=== PATIENT | male | born 1950 | race Two or more races ===

== ENCOUNTER 2016-11-24 03:14 | Emergency (ER) | payer OTHER ==
[~2016-11-24] VITALS: Ht 170.2 cm; Wt 151.0 kg
[~2016-11-24 03:14] MED LIST: LISIPOW; METOPROLOL
[2016-11-24] MEDS ORDERED: NEOMYCIN-BACITRACIN-POLYM 15GM TOP OINT TOP ONE (03:23)
[2016-11-24] MEDS ORDERED: NEOMYCIN-BACITRACIN-POLYM UNITDOSE PKG TOP OINT TOP ONE (03:30)
[2016-11-24] MEDS ORDERED: cloNIDine HCL 0.1 MG TAB PO ONE (03:30)
[2016-11-24] MEDS ORDERED: OXYMETAZOLINE HCL 0.05 % NASAL SPRAY 15ML ONE (03:34)
[2016-11-24] MEDS ORDERED: cefTRIAXone 1GM/50ML D5W 50 ML IV ONE (08:00)
[2016-11-24] MEDS ORDERED: SODIUM CHLORIDE 0.9% 1,000 ML IV ONE (08:00)
[2016-11-24 08:13] LABS: Basophils # (auto) 0 uL; Basophils % (auto) 0.3 % (0.0-2.0); CONDITION Y; Eosinophils # (auto) 0.3 uL; Eosinophils % (auto) 3.9 % (0.0-7.0); Hematocrit 36.7 % (41.0-53.0); Hemoglobin 12.6 g/dL (13.5-17.5); Lymphocytes # (auto) 1.9 uL; Lymphocytes % (auto) 28.7 % (10.0-50.0); Mean Corpuscular Hemoglobin 29.7 pg (28.0-32.0); Mean Corpuscular Hgb Conc. 34.3 g/dL (32.0-36.0); Mean Corpuscular Volume 86.5 fL (80.0-100.0); Mean Platelet Volume 7.9 fL (7.4-10.4); Monocytes # (auto) 0.4 uL; Monocytes % (auto) 6.6 % (0.0-12.0); Neutrophils % (auto) 60.5 % (37.0-80.0); Platelet Count (auto) 254 10^3/uL (140-450); Red Cell Distribution Width 13.9 % (11.6-16.0); White Blood Cell 6.5 10^3/uL (4.4-10.8)
[2016-11-24 08:24] LABS: Albumin 3.5 g/dL (3.4-5.0); BUN/Creatinine Ratio 26.1; Bilirubin, Total 0.3 mg/dL (0.2-1.0); Calcium 8.5 mg/dL (8.5-10.1); Potassium 3.6 mmol/L (3.5-5.1); Total Protein 6.8 g/dL (6.4-8.2)
[2016-11-24 08:25] LABS: INR 0.95 (0.9-1.15); Partial Thromboplastin Time 28.1 sec (22.64-33.71); Prothrombin Time 10.4 sec (9.37-12.3)
[2016-11-24 10:16] VITALS: BP 128/71
== END 2016-11-24 11:15 | disposition home or self-care (01) ==
LOC: ER 03:14
DX: R04.0 Epistaxis (principal); J01.40 Acute pansinusitis, unspecified; E03.9 Hypothyroidism, unspecified; I10 Essential (primary) hypertension; Z88.0 Allergy status to penicillin
CPT/HCPCS: 36415; 70450; 80053; 83735; 84443; 85025; 85610; 85730; 94761; 96365; 99285; J0696

== ENCOUNTER 2021-06-28 01:54 | Emergency (ER) | payer MEDICARE, OTHER ==
[~2021-06-28] VITALS: Ht 170.2 cm; Wt 105.3 kg
[2021-06-28 07:51] LABS: Basophils # (auto) 0.1 10 ^3/uL (0-0.2); Basophils % (auto) 1.1 % (0.0-2.0); Eosinophils # (auto) 0.2 10 ^3/uL (0-0.8); Eosinophils % (auto) 4.3 % (0.0-7.0); Hemoglobin 13.7 g/dL (13.5-17.5); Lymphocytes # (auto) 1.7 10 ^3/uL (0.4-5.4); Lymphocytes % (auto) 32.3 % (10.0-50.0); Mean Corpuscular Hemoglobin 28.7 pg (28.0-32.0); Mean Corpuscular Hgb Conc. 34.2 g/dL (32.0-36.0); Mean Corpuscular Volume 83.7 fL (80.0-100.0); Monocytes # (auto) 0.4 10 ^3/uL (0-1.3); Neutrophils # (auto) 2.8 10 ^3/uL (1.6-8.6); Neutrophils % (auto) 55.3 % (37.0-80.0); Nucleated Red Blood Cells % 0.1 %; Red Blood Cells 4.78 10^6/uL (4.5-5.90); Red Cell Distribution Width 15.8 % (11.8-14.3); White Blood Cell 5.1 10^3/uL (4.4-10.8)
[2021-06-28 08:00] LABS: INR 1.12 (0.9-1.15); Partial Thromboplastin Time 36.2 sec (23.6-33.0)
[2021-06-28 08:05] LABS: Albumin 3.4 g/dL (3.4-5.0); Calcium 8.6 mg/dL (8.5-10.1); Potassium 3.7 mmol/L (3.5-5.1)
[2021-06-28 08:07] LABS: BUN/Creatinine Ratio 22.2
[2021-06-28 08:11] LABS: Bilirubin, Total 0.4 mg/dL (0.2-1.0); Total Protein 6.7 g/dL (6.4-8.2)
[2021-06-28 08:29] VITALS: BP 145/70
== END 2021-06-28 09:20 | disposition home or self-care (01) ==
LOC: ER 01:58
DX: R04.0 Epistaxis (principal); I48.91 Unspecified atrial fibrillation; E11.9 Type 2 diabetes mellitus without complications; I10 Essential (primary) hypertension; Z88.0 Allergy status to penicillin
CPT/HCPCS: 36415; 80053; 83880; 84484; 85025; 85610; 85730

== ENCOUNTER 2022-11-26 19:35 | Emergency (ER) | payer OTHER ==
[~2022-11-26] VITALS: Ht 170.2 cm; Wt 150.0 kg
[2022-11-26] MEDS ORDERED: InsuLIN REG 1unit/0.01ml Soln (100units/ml) SC ONE (20:00)
[2022-11-26] MEDS ORDERED: METOPROLOL TARTRATE 50 MG TAB PO ONE (22:45)
[2022-11-27 00:41] VITALS: BP 155/92; PULSE 83; RESP 18; TEMP 98.1; O2SAT 95
== END 2022-11-27 00:52 | disposition home or self-care (01) ==
LOC: ER 19:35 → EDBD 19:35 → ER 11-27 00:52
DX: E09.65 Drug or chemical induced diabetes mellitus with hyperglycemia (principal); I48.91 Unspecified atrial fibrillation; I10 Essential (primary) hypertension; Z79.899 Other long term (current) drug therapy; Z88.0 Allergy status to penicillin
CPT/HCPCS: 82962